=== PATIENT | female | born 1960 | race African-American/Black ===

== ENCOUNTER 2024-06-06 10:29 | Emergency (ER) | payer OTHER ==
[2024-06-06 10:55] VITALS: BP 125/82; PULSE 87; RESP 18; TEMP 98.2; BMI 32.8
[2024-06-06] MEDS ORDERED: LIDOCAINE 4% PATCH TP ONE (11:27)
[2024-06-06] MEDS ORDERED: KETOROLAC TROMETHAMINE 30 MG/1 ML VIAL ONE (11:27)
[2024-06-06] MEDS ORDERED: ACETAMINOPHEN 500 MG TABLET (FP) ONE (11:27)
[2024-06-06] MEDS: LIDOCAINE 4% PATCH TP ONE (11:34)
[2024-06-06] MEDS: KETOROLAC TROMETHAMINE 30 MG/1 ML VIAL IM ONE (11:34)
[2024-06-06] MEDS: ACETAMINOPHEN 500 MG TABLET (FP) PO ONE (11:34)
[2024-06-06] MEDS ORDERED: LIDOCAINE PATCH REMOVAL MC SCH (22:00)
== END 2024-06-06 11:44 | disposition home or self-care (01) ==
LOC: JERFT 10:29
PROC: 3E0233Z Introduction of Anti-inflammatory into Muscle, Percutaneous Approach (ICD-10-PCS; principal; 2024-06-06)
DX: M54.50 Low back pain, unspecified (principal); M54.2 Cervicalgia; V49.40XA Driver injured in collision with unspecified motor vehicles in traffic accident, initial encounter; Y92.410 Unspecified street and highway as the place of occurrence of the external cause
CPT/HCPCS: 99284-25